=== PATIENT | male | born 2000 | race Caucasian/White ===

== ENCOUNTER 2022-12-09 21:06 | Emergency (ER) | payer MEDICAID ==
[~2022-12-09] VITALS: Ht 177.8 cm; Wt 77.0 kg
[2022-12-09 21:30] VITALS: BP 138/72
[2022-12-09] MEDS ORDERED: KETOROLAC 60MG/2ML VIAL IM ONE (21:30)
[2022-12-09] MEDS ORDERED: IBUP-2029 MT (22:14)
[2022-12-09] MEDS ORDERED: IBUPROFEN 600MG TABLET PO ONE (22:15)
== END 2022-12-09 22:49 | disposition home or self-care (01) ==
LOC: ER 21:06
DX: S80.11XA Contusion of right lower leg, initial encounter (principal); F41.9 Anxiety disorder, unspecified; Z88.0 Allergy status to penicillin; W19.XXXA Unspecified fall, initial encounter; Y93.89 Activity, other specified; Y92.89 Other specified places as the place of occurrence of the external cause; Y99.8 Other external cause status
CPT/HCPCS: 73590; 73610; 99284; J1885; Z7610